=== PATIENT | male | born 1975 | race Caucasian/White ===

== ENCOUNTER → 2016-08-02 | Outpatient (REF) | payer OTHER ==
[2016-08-02 12:37] LABS: ALBUMIN 4.1 GM/DL (3.2-5.2); ALBUMIN/GLOBULIN RATIO 1.24 (1.00-1.93); ALKALINE PHOSPHATASE 94 U/L (45-117); ALT/SGPT 79 U/L (12-78); ANION GAP 8 MEQ/L (8-16); AST/SGOT 31 U/L (15-37); BILIRUBIN,TOTAL 0.4 MG/DL (0.2-1.0); BLOOD UREA NITROGEN 12 MG/DL (7-18); CALCIUM LEVEL 9.2 MG/DL (8.5-10.1); CARBON DIOXIDE LEVEL 26 MEQ/L (21-32); CHLORIDE LEVEL 104 MEQ/L (98-107); CHOLESTEROL LEVEL 217 MG/DL (<200); CREATININE FOR GFR 0.89 MG/DL (0.70-1.30); FREE T4 0.79 NG/DL (0.76-1.46); GLOMERULAR FILTRATION RATE > 60.0 (>60); GLUCOSE, FASTING 96 MG/DL (70-105); POTASSIUM SERUM 4.5 MEQ/L (3.5-5.1); SODIUM LEVEL 138 MEQ/L (136-145); TOTAL PROTEIN 7.4 GM/DL (6.4-8.2); TRIGLYCERIDES LEVEL 166 MG/DL (<150)
== END ==
LOC: M SFHCCLAY 09:10
PROVIDERS: ATTEND Nurse Practitioner
DX: E78.5 Hyperlipidemia, unspecified (principal); F41.1 Generalized anxiety disorder

== ENCOUNTER → 2017-04-17 | Outpatient (REF) | payer OTHER ==
[2017-04-18 10:56] LABS: RUBELLA IgG QUALITATIVE IMMUNE (IMMUNE)
[2017-04-19 08:07] LABS: RUBEOLA IgG ANTIBODY <25.0 AU/mL (Immune >29.9)
[2017-04-19 08:07] LABS: MUMPS VIRUS IgG ANTIBODY >300.0 AU/mL (Immune >10.9)
== END ==
LOC: M SFHCCLAY 11:31
DX: Z01.84 Encounter for antibody response examination (principal)

== ENCOUNTER → 2017-04-20 | Outpatient (CLI) | payer BC, OTHER | LOC: M CLY 11:08 | DX: J40 Bronchitis, not specified as acute or chronic (principal) | CPT/HCPCS: 71046 ==

== ENCOUNTER → 2017-04-20 | Outpatient (REF) | payer OTHER | LOC: M SFHCCLAY 10:35 | DX: J02.9 Acute pharyngitis, unspecified (principal) ==

== ENCOUNTER 2018-03-04 11:56 | Emergency (ER) | payer BC, OTHER ==
[2018-03-04 16:00] LABS: HEMATOCRIT 44.3 % (42.0-52.0); HEMOGLOBIN 15.3 g/dl (13.5-17.5); MEAN CORPUSCULAR HEMOGLOBIN 30.1 pg (27.0-33.0); MEAN CORPUSCULAR HGB CONC 34.5 g/dl (32.0-36.5); PLATELET COUNT, AUTOMATED 256 10^3/uL (150-450); RED BLOOD COUNT 5.09 10^6/uL (4.30-6.10); WHITE BLOOD COUNT 15.4 10^3/uL (4.0-10.0)
[2018-03-04 16:23] LABS: ALBUMIN 4.4 GM/DL (3.2-5.2); ALBUMIN/GLOBULIN RATIO 1.22 (1.00-1.93); ALKALINE PHOSPHATASE 112 U/L (45-117); ALT/SGPT 73 U/L (12-78); ANION GAP 5 MEQ/L (8-16); AST/SGOT 29 U/L (7-37); BILIRUBIN,DIRECT < 0.1 MG/DL (0.0-0.2); BILIRUBIN,TOTAL 0.6 MG/DL (0.2-1.0); BLOOD UREA NITROGEN 18 MG/DL (7-18); CALCIUM LEVEL 9.3 MG/DL (8.5-10.1); CARBON DIOXIDE LEVEL 28 MEQ/L (21-32); CHLORIDE LEVEL 102 MEQ/L (98-107); CREATININE FOR GFR 1.02 MG/DL (0.70-1.30); GLOMERULAR FILTRATION RATE > 60.0 (>60); GLUCOSE, FASTING 121 MG/DL (70-100); POTASSIUM SERUM 4.4 MEQ/L (3.5-5.1); SODIUM LEVEL 135 MEQ/L (136-145)
[2018-03-07 00:30] LABS: Lyme Disease IgG/IgM Antibodie <0.91 ISR (0.00-0.90); Lyme Disease IgM Ab Quantitati <0.80 index (0.00-0.79)
== END 2018-03-04 16:43 | disposition home or self-care (01) ==
LOC: M ED 11:56
DX: L50.9 Urticaria, unspecified (principal)
CPT/HCPCS: 70450

== ENCOUNTER → 2018-03-29 | Outpatient (REF) | payer OTHER ==
[~2018-03-29] MED LIST: BENA25CA4 PO; HYDR-3363 PO; PRED10TA2
[2018-03-29 16:22] LABS: BASO % 0.4 % (0.0-1.0); EOS # 0.1 10^3/uL (0.0-0.50); EOS % 0.5 % (0.0-3.0); HEMATOCRIT 43.1 % (42.0-52.0); HEMOGLOBIN 14.5 g/dl (13.5-17.5); LYMPH # 1.6 10^3/uL (1.5-4.5); LYMPH % 17.3 % (24.0-44.0); MEAN CORPUSCULAR HEMOGLOBIN 29.9 pg (27.0-33.0); MEAN CORPUSCULAR HGB CONC 33.6 g/dl (32.0-36.5); MEAN CORPUSCULAR VOLUME 88.9 fl (80.0-96.0); MONO # 0.5 10^3/uL (0.0-0.8); MONO % 5.3 % (0.0-5.0); NEUTROPHILS # 6.9 10^3/uL (1.8-7.7); NEUTROPHILS % 75.7 % (36.0-66.0); PLATELET COUNT, AUTOMATED 192 10^3/uL (150-450); RED BLOOD COUNT 4.85 10^6/uL (4.30-6.10); WHITE BLOOD COUNT 9.1 10^3/uL (4.0-10.0)
[2018-03-29 16:33] LABS: IMMUNOGLOBULIN A 133 MG/DL (70-400); IMMUNOGLOBULIN G 866 MG/DL (681-1648); IMMUNOGLOBULIN M 100 MG/DL (40-230)
== END ==
LOC: M SFHCCLAY 10:44
PROVIDERS: ATTEND Family Medicine
DX: L50.9 Urticaria, unspecified (principal)

== ENCOUNTER → 2018-04-25 | Outpatient (CLI) | payer BC, OTHER ==
[2018-04-25 13:43] LABS: BASO % 0.2 % (0.0-1.0); EOS # 0.2 10^3/uL (0.0-0.50); EOS % 2.5 % (0.0-3.0); HEMATOCRIT 43.2 % (42.0-52.0); HEMOGLOBIN 14.5 g/dl (13.5-17.5); LYMPH # 2.7 10^3/uL (1.5-4.5); LYMPH % 30.2 % (24.0-44.0); MEAN CORPUSCULAR HEMOGLOBIN 29.8 pg (27.0-33.0); MEAN CORPUSCULAR HGB CONC 33.6 g/dl (32.0-36.5); MEAN CORPUSCULAR VOLUME 88.7 fl (80.0-96.0); MONO # 0.8 10^3/uL (0.0-0.8); MONO % 9.5 % (0.0-5.0); NEUTROPHILS % 56.2 % (36.0-66.0); PLATELET COUNT, AUTOMATED 212 10^3/uL (150-450); RED BLOOD COUNT 4.87 10^6/uL (4.30-6.10); WHITE BLOOD COUNT 8.8 10^3/uL (4.0-10.0)
[2018-04-25 13:49] LABS: RHEUMATOID FACTOR QUANT < 10.0 IU/ML (<15.0); THYROXINE (T4) 5.8 UG/DL (4.5-12.0); TOTAL T3 121.2 NG/DL (60.0-181.0)
[2018-04-25 14:35] LABS: ERYTHROCYTE SEDIMENTATION RATE 7 mm/hr (0-15)
[2018-04-26 09:49] LABS: THYROGLOBULIN ANTIBODY 124.4 U/ML (<60.0); THYROID PEROXIDASE ANTIBODY > 1300.0 U/ML (<60.0)
[2018-04-30 00:07] LABS: ANTINUCLEAR ANTIBODIES DIRECT Negative (Negative); IGE RECEPTOR ABY 1 7.3 (<10)
== END ==
LOC: M SMT 09:27
PROVIDERS: ATTEND Allergy & Immunology Allergy
DX: L50.1 Idiopathic urticaria (principal)

== ENCOUNTER → 2018-06-13 | Outpatient (REF) | payer OTHER ==
[2018-06-13 17:10] LABS: BASO % 0.1 % (0.0-1.0); EOS # 0.2 10^3/uL (0.0-0.50); EOS % 1.9 % (0.0-3.0); HEMATOCRIT 44.5 % (42.0-52.0); HEMOGLOBIN 14.9 g/dl (13.5-17.5); LYMPH # 3.2 10^3/uL (1.5-4.5); LYMPH % 32.3 % (24.0-44.0); MEAN CORPUSCULAR HEMOGLOBIN 29.3 pg (27.0-33.0); MEAN CORPUSCULAR HGB CONC 33.5 g/dl (32.0-36.5); MEAN CORPUSCULAR VOLUME 87.6 fl (80.0-96.0); MONO % 9.7 % (0.0-5.0); NEUTROPHILS # 5.4 10^3/uL (1.8-7.7); NEUTROPHILS % 55.2 % (36.0-66.0); PLATELET COUNT, AUTOMATED 209 10^3/uL (150-450); RED BLOOD COUNT 5.08 10^6/uL (4.30-6.10); WHITE BLOOD COUNT 9.8 10^3/uL (4.0-10.0)
[2018-06-13 17:27] LABS: ALBUMIN 3.8 GM/DL (3.2-5.2); ALT/SGPT 73 U/L (12-78); BLOOD UREA NITROGEN 20 MG/DL (7-18); C REACTIVE PROTEIN QUANTITATIV 0.72 MG/DL (0.00-0.30); CALCIUM LEVEL 8.9 MG/DL (8.5-10.1); CARBON DIOXIDE LEVEL 31 MEQ/L (21-32); CHLORIDE LEVEL 100 MEQ/L (98-107); CREATININE FOR GFR 0.98 MG/DL (0.70-1.30); FREE T4 0.79 NG/DL (0.76-1.46); GLOMERULAR FILTRATION RATE > 60.0 (>60); GLUCOSE, FASTING 90 MG/DL (70-100); POTASSIUM SERUM 3.9 MEQ/L (3.5-5.1); RHEUMATOID FACTOR QUANT < 10.0 IU/ML (<15.0); SODIUM LEVEL 139 MEQ/L (136-145); TOTAL PROTEIN 6.7 GM/DL (6.4-8.2)
[2018-06-13 17:56] LABS: ERYTHROCYTE SEDIMENTATION RATE 3 mm/hr (0-15)
[2018-06-16 00:07] LABS: ANA (HEP2) Negative (.); IgG P18 AB Absent (.); IgG P23 AB Absent (.); IgG P28 AB Absent (.); IgG P30 AB Absent (.); IgG P39 AB Absent (.); IgG P41 AB Absent (.); IgG P45 AB Absent (.); IgG P66 AB Absent (.); IgG P93 AB Absent (.); IgM P23 AB Absent (.); IgM P39 AB Absent (.); IgM P41 AB Absent (.); LYME IgG WB INTERPRETATION Negative (.); LYME IgM WB INTERPRETATION Negative (.)
== END ==
LOC: M SFHCCLAY 11:42
PROVIDERS: ATTEND Nurse Practitioner Family
DX: K21.9 Gastro-esophageal reflux disease without esophagitis (principal); L50.9 Urticaria, unspecified; T78.40XD Allergy, unspecified, subsequent encounter

== ENCOUNTER 2018-07-16 13:04 | Day surgery (SDC) | payer BC, OTHER ==
[~2018-07-16] VITALS: Ht 182.9 cm; Wt 140.2 kg
[~2018-07-16 13:04] MED LIST changes: +LEVOTAB10 PO; +LIDOCAINE 2% INJ 100 MG/5 ML SDV (FOR ANES.) As Ordered ONE; +NS 1,000 ML IV ONE; +PANT40TA3 PO; -PRED10TA2; +PRED10TA2 PO; +PROPOFOL 200 MG/20 ML VIAL As Ordered ONE; +RANI150T PO
--- NOTE | 2018-07-16 16:11 | ROOR ---
Patient Name: Vernon Regalado Procedure Date: 07/16/2018 3:43 PM Date of : 1975 Age: 43 Room: [facility] Gender: Male Note Status: Finalized Procedure: Upper GI endoscopy Indications: Epigastric abdominal pain, Dysphagia Providers: Familia Vela MD Referring MD: Sunitha Gale NP Requesting Provider: Medicines: Monitored Anesthesia Care Complications: No immediate complications. Procedure: Pre-Anesthesia Assessment: - Prior to the procedure, a History and Physical was performed, and patient medications and allergies were reviewed. The patient is competent. The risks and benefits of the procedure and the sedation options and risks were discussed with the patient. All questions were answered and informed consent was obtained. Patient identification and proposed procedure were verified by the physician, the nurse and the anesthesiologist in the procedure room. Mental Status Examination: alert and oriented. Airway Examination: normal oropharyngeal airway and neck mobility. Respiratory Examination: clear to auscultation. CV Examination: normal. Prophylactic Antibiotics: The patient does not require prophylactic antibiotics. Prior Anticoagulants: The patient has taken no previous anticoagulant or antiplatelet agents. ASA Grade Assessment: II - A patient with mild systemic disease. After reviewing the risks and benefits, the patient was deemed in satisfactory condition to undergo the procedure. The anesthesia plan was to use monitored anesthesia care (MAC). Immediately prior to administration of medications, the patient was re-assessed for adequacy to receive sedatives. The heart rate, respiratory rate, oxygen saturations, blood pressure, adequacy of pulmonary ventilation, and response to care were monitored throughout the procedure. The physical status of the patient was re-assessed after the procedure. The Endoscope was introduced through the mouth, and advanced to the second part of duodenum. The upper GI endoscopy was accomplished without difficulty. The patient tolerated the procedure well. Findings: The examined esophagus was normal. Biopsies were obtained from the proximal and distal esophagus with cold forceps for histology of suspected eosinophilic esophagitis. Verification of patient identification for the specimen was done by the physician and nurse using the patient's name, date and medical record number. Estimated blood loss was minimal. Scattered mild inflammation characterized by erythema, granularity and linear erosions was found in the gastric antrum. Biopsies were taken with a cold forceps for Helicobacter pylori testing. The duodenal bulb and second portion of the duodenum were normal. Biopsies for histology were taken with a cold forceps for evaluation of celiac disease. Impression: - Normal esophagus. Biopsied. - Gastritis. Biopsied. - Normal duodenal bulb and second portion of the duodenum. Biopsied. Recommendation: - Patient has a contact number available for emergencies. The signs and symptoms of potential delayed complications were discussed with the patient. Return to normal activities tomorrow. Written discharge instructions were provided to the patient. - Resume previous diet. - Continue present medications. - Await pathology results. - Based on the biopsy results you will receive a phone call from GI clinic in 2-3 weeks to review the pathology results AND/OR your results will be faxed to your Primary care physician. - Return to primary care physician. Familia Vela MD Familia Vela MD 07/16/2018 4:11:33 PM Electronically signed by Familia Vela MD Number of Addenda: 0 Note Initiated On: 07/16/2018 3:43 PM Estimated Blood Loss: Estimated blood loss was minimal.
[2018-07-16 16:30] VITALS: BP 160/80
== END 2018-07-16 16:39 | disposition home or self-care (01) ==
LOC: M OPP 13:04
PROVIDERS: ATTEND Internal Medicine Gastroenterology
DX: K29.70 Gastritis, unspecified, without bleeding (principal); R10.13 Epigastric pain; R13.10 Dysphagia, unspecified

== ENCOUNTER → 2020-05-10 | Outpatient (CLI) | payer OTHER ==
[~2020-05-10] MED LIST changes: -LIDOCAINE 2% INJ 100 MG/5 ML SDV (FOR ANES.) As Ordered ONE; -NS 1,000 ML IV ONE; +PANT40TA29 PO; -PANT40TA3 PO; -PROPOFOL 200 MG/20 ML VIAL As Ordered ONE
--- NOTE | 2020-05-10 12:53 | REPVR ---
PROCEDURE INFORMATION: Exam: MR Lumbar Spine Without Contrast. Exam date and time: 05/10/2020 10:16 AM Age: 44 years old Clinical indication: Low back pain; Additional info: Spondyls w/o myelopathy or radiculopathy TECHNIQUE: Imaging protocol: Multiplanar magnetic resonance images of the lumbar spine without intravenous contrast. COMPARISON: No relevant prior studies available. FINDINGS: Vertebrae: See "L2-L3" finding. Spinal cord: The conus medullaris is normal. L1-L2: No significant disc disease. No significant spinal canal stenosis. No neural foraminal stenosis. L2-L3: The L2-L3 level demonstrates a mild diffuse posterior disc herniation. There is midline T2 bright signal at the annular insertion on T3 best seen on axial image 17 consistent with a simple annular tear with no associated disc herniation. There is no nerve root compression. L3-L4: The L3-L4 level demonstrates a mild diffuse posterior disc herniation. There is mild facet arthropathy. There is mild bilateral subarticular stenosis without foraminal compromise. L4-L5: The L4-L5 level demonstrates a mild diffuse posterior disc herniation. There is moderate bilateral facet arthropathy. There is minimal narrowing of the subarticular canals without definite nerve compression here or in the foramina. L5-S1: There is chronic disc narrowing and disc osteophytic disease at L5-S1. Osteophytic changes protrude into the left lateral foramen on axial image 3 and sagittal image 2 and 3. There is Modic type 2 signal change of the disc margins more prominent in the inferior aspect of L5. There is moderate bilateral facet arthropathy. There is mild left foraminal compromise. Soft tissues: Unremarkable. IMPRESSION: 1. The L2-L3 level demonstrates a mild diffuse posterior disc herniation. There is midline T2 bright signal at the annular insertion on T3 best seen on axial image 17 consistent with a simple annular tear with no associated disc herniation. There is no nerve root compression. 2. The L3-L4 level demonstrates a mild diffuse posterior disc herniation. There is mild facet arthropathy. There is mild bilateral subarticular stenosis without foraminal compromise. 3. The L4-L5 level demonstrates a mild diffuse posterior disc herniation. There is moderate bilateral facet arthropathy. There is minimal narrowing of the subarticular canals without definite nerve compression here or in the foramina. 4. There is chronic disc narrowing and disc osteophytic disease at L5-S1. Osteophytic changes protrude into the left lateral foramen on axial image 3 and sagittal image 2 and 3. There is Modic type 2 signal change of the disc margins more prominent in the inferior aspect of L5. There is moderate bilateral facet arthropathy. There is mild left foraminal compromise. Electronically signed by: Wilmar Jameson On 05/10/2020 12:52:43 PM
== END ==
LOC: M RAD 08:40
PROVIDERS: ATTEND Physician Assistant
DX: M47.817 Spondylosis without myelopathy or radiculopathy, lumbosacral region (principal); M51.26 Other intervertebral disc displacement, lumbar region

== ENCOUNTER → 2020-05-13 | Outpatient (CLI) | payer OTHER ==
[~2020-05-13] MED LIST changes: +ISOVUE-300 61% 50ML VIAL As Ordered ONE; +ISOVUE-M 300 61% 15ML VIAL As Ordered ONE; +PROHANCE 279.3MG/ML 5ML VIAL As Ordered ONE
--- NOTE | 2020-05-13 09:21 | REP ---
INDICATION: PAIN IN RT SHOULDER. COMPARISON: None. TECHNIQUE: The injection procedure is performed and dictated separately. Pre and post intra-articular gadolinium enhanced saline injected imaging is acquired. Imaging planes include axial, oblique coronal, oblique sagittal and ABER projection images. T1 and T2-weighted scans are included with and without fat saturation. FINDINGS: Pre-injection MR imaging demonstrates the cortical and medullary bone signal intensity are normal in the proximal humerus and scapula. There is mild hypertrophy and some fluid in the acromioclavicular joint. Minimal marrow edema is seen in the distal clavicle associated with this mild osteoarthritis. There is a small subacromial subdeltoid bursal effusion visible. Pre-injection T2 images showed 2 focal T2 hyperintense lesions at the distal insertion of the supraspinatus consistent with partial thickness distal supraspinatus tears. There is mild tendinitis tendinosis change in the distal supraspinatus tendon diffusely. Post injection imaging shows good filling and enhancement of the right glenohumeral articulation. There is no evidence of full-thickness cuff tear. Injected gadolinium enhanced saline under lies the superior labrum and I cannot exclude a nondisplaced SLAP tear. There is a small subcortical cyst in the anteroinferior glenoid. No glenoid labral tear is seen here or posteriorly. Biceps tendon appears intact. The infraspinatus and subscapularis tendons are unremarkable. No loose body. IMPRESSION: Mild AC joint osteoarthritis. Small subacromial subdeltoid bursal effusion. Partial thickness distal supraspinatus attachment site cuff tear. Possible nondisplaced SLAP tear in the superior labrum. There is a small subcortical cyst in the anteroinferior glenoid. <Electronically signed by Garrison Oates > 05/13/20 [id number]
--- NOTE | 2020-05-13 16:56 | REP ---
INDICATION: PAIN IN RT SHOULDER COMPARISON: None. TECHNIQUE: The procedure was performed under the direct supervision of Dr. Oates. The benefits and risks including but not limited to pain, infection, bleeding and anaphylaxis were explained to the patient and informed consent was obtained. The right glenohumeral joint space was localized using fluoroscopic guidance. The skin was prepped and draped in a sterile fashion. 1% lidocaine was used as a local anesthetic. Using fluoroscopic guidance a 22 gauge spinal needle was inserted and advanced into the joint. 0.5 ml of Conray 43 was injected to verify placement. 11 ml of a solution containing 20 ml of sterile saline and 0.15 ml of ProHance was injected into the joint. The needle was removed and the patient was taken to MRI for postprocedural imaging. The patient tolerated the procedure well and there were no immediate complications. Less than 6 seconds of fluoro time was utilized for this procedure. FINDINGS: None IMPRESSION: Fluoro guidance for right shoulder MRI arthrogram injection <Electronically signed by Mekhi Mancini > 05/13/20 160 <Electronically signed by Garrison Oates > 05/13/20 [id number]
== END ==
LOC: M RADPRO 06:31
PROVIDERS: ATTEND Physician Assistant
DX: R93.7 Abnormal findings on diagnostic imaging of other parts of musculoskeletal system (principal); M25.511 Pain in right shoulder
CPT/HCPCS: 23350; 73223; 77002; A9576; Q9967

== ENCOUNTER → 2020-05-21 | Outpatient (CLI) | payer OTHER ==
[~2020-05-21] MED LIST changes: -ISOVUE-M 300 61% 15ML VIAL As Ordered ONE
--- NOTE | 2020-05-21 08:44 | REP ---
INDICATION: PAIN IN RIGHT HIP. COMPARISON: None. TECHNIQUE: Precontrast imaging includes coronal T1 and T2-weighted scans of both hips. Precontrast high-resolution smaller field of view axial, coronal and sagittal T2 fat sat images are acquired of the hip. The injection procedure is performed and dictated separately. Postcontrast T1 fat sat images are acquired in all 3 planes. FINDINGS: Pre-injection imaging demonstrates that cortical and medullary bone signal intensity are normal in the proximal femurs and in the visualized bony pelvic ring. There is no evidence of avascular necrosis. No significant hip joint effusion is seen. Prostate, seminal vesicles, and urinary bladder are unremarkable. No abdominal wall defect is seen. No juxta-articular cyst or mass is observed. Post injection imaging shows good filling and enhancement of the right hip articulation. There is no evidence of loose body. No articular labral cartilage tear is appreciated. Head neck junction morphology is normal. Ligamentum teres is intact. There is a 4 mm focal partial-thickness T2 hyperintense focus in the articular cartilage of the right femoral head consistent with focal chondromalacia. No other articular cartilaginous lesion is seen. 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 Otherwise negative MR arthrography right hip. No evidence of labral cartilage tear or loose body. <Electronically signed by Garrison Oates > 05/21/20 [id number]
--- NOTE | 2020-05-21 17:33 | REP ---
INDICATION: PAIN IN RIGHT HIP. COMPARISON: None. TECHNIQUE: The procedure was performed under the direction supervision of Dr. Oates. The benefits and risks including but not limited to pain, infection, bleeding and anaphylaxis were explained to the patient and informed consent was obtained. The right femoral neck was localized using fluoroscopic guidance. Skin was prepped and draped in a sterile fashion. 1% lidocaine was used as a local anesthetic. Using fluoroscopic guidance a 22 gauge spinal needle was inserted and advanced to the femoral neck. 0.5 ml of Isovue-300 was injected to verify placement. 11 ml of a solution containing 20 ml of sterile saline and 0.15 ml of ProHance was injected into the joint. The needle was removed and the patient was taken to MRI for postprocedural imaging. The patient tolerated the procedure well and there were no immediate complications. Less than 6 seconds of fluoro time was utilized for this procedure. FINDINGS: None IMPRESSION: Fluoroscopic guidance for right hip MRI arthrogram injection. <Electronically signed by Mekhi Mancini > 05/21/20 0843 <Electronically signed by Garrison Oates > 05/21/20 [id number]
== END ==
LOC: M RADPRO 06:28
PROVIDERS: ATTEND Physician Assistant
DX: M25.551 Pain in right hip (principal); M94.251 Chondromalacia, right hip
CPT/HCPCS: 27093; 73723; 77002; A9576; Q9967

== ENCOUNTER → 2020-08-25 | Outpatient (REF) | payer OTHER ==
[~2020-08-25] MED LIST changes: -ISOVUE-300 61% 50ML VIAL As Ordered ONE; -PROHANCE 279.3MG/ML 5ML VIAL As Ordered ONE
== END ==
LOC: M LAB REF 09:07
PROVIDERS: ATTEND Surgery
DX: L72.3 Sebaceous cyst (principal)

== ENCOUNTER → 2020-09-22 | Outpatient (REF) | payer OTHER | LOC: M LAB REF 14:46 | PROVIDERS: ATTEND Surgery | DX: L72.3 Sebaceous cyst (principal) ==

== ENCOUNTER → 2021-01-20 | Outpatient (CLI) | payer OTHER ==
[2021-01-20 16:35] LABS: COLLAGEN EPINEPHRINE 226 SECONDS (74-162)
[2021-01-20 16:59] LABS: PLATELET COUNT, AUTOMATED 256 10^3/uL (150-450)
[2021-01-20 17:05] LABS: COLLAGEN ADP > 610 SECONDS (56-103)
[2021-01-20 17:29] LABS: INR 1.29; PROTHROMBIN TIME 16.6 SECONDS (12.7-14.5)
[2021-01-20 17:30] LABS: PARTIAL THROMBOPLASTIN TIME 38.1 SECONDS (25.9-37.0)
== END ==
LOC: M WUC 15:12
PROVIDERS: ATTEND Physical Medicine & Rehabilitation
DX: M54.17 Radiculopathy, lumbosacral region (principal)

== ENCOUNTER → 2021-01-24 | Outpatient (CLI) | payer OTHER ==
[2021-01-24 07:03] LABS: COLLAGEN EPINEPHRINE 162 SECONDS (74-162)
== END ==
LOC: M LAB 06:26
PROVIDERS: ATTEND Physical Medicine & Rehabilitation
DX: Z01.812 Encounter for preprocedural laboratory examination (principal)

== ENCOUNTER → 2021-01-28 | Outpatient (CLI) | payer OTHER ==
[~2021-01-28] MED LIST changes: +ISOVUE-300 61% 50ML VIAL As Ordered ONE; +LIDOCAINE 1% MDV 20ML VIAL As Ordered ONE; +methylPREDNISolone SUSP 40MG/ML 1ML VIAL (DEPO MEDROL) As Ordered ONE
--- NOTE | 2021-01-28 16:21 | REP ---
INDICATION: OA RT HIP. COMPARISON: None TECHNIQUE: The procedure was performed by RODRICK Hyde, under the direct supervision of Dr. Grover. The benefits and risks of the procedure were explained to the patient, and an informed consent was obtained. Directly prior to the start of the procedure, a formal time-out was completed in the procedure room. The right hip joint space was localized using fluoroscopic guidance. The skin was prepped and draped in a sterile fashion. Approximately 5 mL of 1% Lidocaine 10 mg/ml was used as a local anesthetic. Using fluoroscopic guidance, a #22 gauge spinal needle was inserted and advanced into the right hip joint space. Approximately 2 mL of Isovue 300 was injected to verify placement. Seven mL of a solution containing 5 mL 1% lidocaine 10 mg/ml and 2 cc Depo-Medrol 40 milligrams/milliliter was injected into the joint space. The needle was removed and hemostasis was achieved. FINDINGS: The patient tolerated the procedure well and there were no immediate complications. IMPRESSION: 1. Technically successful right hip arthrogram. 0.1 minutes of fluoroscopy time was utilized for this procedure. Some fluoroscopic images are performed with last image hold technology. These images require no additional radiation. <Electronically signed by Dianna Lainez > 01/28/21 0998 <Electronically signed by Anthony Grover > 01/28/21 [id number]
== END ==
LOC: M RADPRO 13:11
PROVIDERS: ATTEND Physician Assistant
DX: M16.11 Unilateral primary osteoarthritis, right hip (principal)
CPT/HCPCS: 20610; 77002; J1030; Q9967

== ENCOUNTER → 2021-07-01 | Outpatient (CLI) | payer OTHER ==
[~2021-07-01] MED LIST changes: +PROHANCE 279.3MG/ML 5ML VIAL As Ordered ONE; -methylPREDNISolone SUSP 40MG/ML 1ML VIAL (DEPO MEDROL) As Ordered ONE
== END ==
LOC: M RADPRO 06:40
PROVIDERS: ATTEND Physician Assistant
DX: M24.151 Other articular cartilage disorders, right hip (principal); M16.11 Unilateral primary osteoarthritis, right hip
CPT/HCPCS: 27093; 73723; 77002; A9576; Q9967

== ENCOUNTER → 2021-07-22 | Outpatient (CLI) | payer OTHER ==
[~2021-07-22] MED LIST changes: -PROHANCE 279.3MG/ML 5ML VIAL As Ordered ONE; +methylPREDNISolone SUSP 40MG/ML 1ML VIAL (DEPO MEDROL) As Ordered ONE
== END ==
LOC: M RADPRO 14:59
PROVIDERS: ATTEND Physician Assistant
DX: M16.11 Unilateral primary osteoarthritis, right hip (principal)
CPT/HCPCS: 20610; 77002; J1030; Q9967

== ENCOUNTER → 2021-09-19 | Outpatient (REF) | payer OTHER ==
[~2021-09-19] MED LIST changes: -ISOVUE-300 61% 50ML VIAL As Ordered ONE; -LIDOCAINE 1% MDV 20ML VIAL As Ordered ONE; -methylPREDNISolone SUSP 40MG/ML 1ML VIAL (DEPO MEDROL) As Ordered ONE
== END ==
LOC: M LAB REF 16:54
PROVIDERS: ATTEND Surgery
DX: L72.3 Sebaceous cyst (principal)

== ENCOUNTER → 2021-10-15 | Outpatient (CLI) | payer OTHER | LOC: M RAD 09:31 | PROVIDERS: ATTEND Physician Assistant | DX: M51.26 Other intervertebral disc displacement, lumbar region (principal) ==

== ENCOUNTER → 2021-11-07 | Outpatient (CLI) | payer OTHER | LOC: M PAIN 13:30 | PROVIDERS: ATTEND Nurse Practitioner Family | DX: M51.16 Intervertebral disc disorders with radiculopathy, lumbar region (principal); G43.909 Migraine, unspecified, not intractable, without status migrainosus; K21.9 Gastro-esophageal reflux disease without esophagitis; Z86.14 Personal history of Methicillin resistant Staphylococcus aureus infection; Z87.891 Personal history of nicotine dependence; Z79.899 Other long term (current) drug therapy ==

== ENCOUNTER → 2021-12-29 | Outpatient (CLI) | payer OTHER | LOC: M LABSMTC 09:48 | PROVIDERS: ATTEND Anesthesiology | DX: Z11.52 Encounter for screening for COVID-19 (principal) ==

== ENCOUNTER → 2022-01-03 | Outpatient (CLI) | payer OTHER ==
[~2022-01-03] MED LIST changes: +ISOVUE-M 300 61% 15ML VIAL As Ordered ONE; +LIDOCAINE 1% SDV 30ML VIAL As Ordered ONE; +NORCO, ANEXSIA 5/325MG TABLET (HYDROcodone/ACETAMINOPHEN) As Ordered ONE; +diazePAM 5MG TABLET As Ordered ONE; +methylPREDNISolone SUSP 40MG/ML 1ML VIAL (DEPO MEDROL) As Ordered ONE
== END ==
LOC: M PAIN 10:00
PROVIDERS: ATTEND Anesthesiology
DX: M51.17 Intervertebral disc disorders with radiculopathy, lumbosacral region (principal); G43.909 Migraine, unspecified, not intractable, without status migrainosus; K21.9 Gastro-esophageal reflux disease without esophagitis; Z79.899 Other long term (current) drug therapy; Z87.891 Personal history of nicotine dependence
CPT/HCPCS: 62323; J1030; Q9967

== ENCOUNTER → 2022-02-14 | Outpatient (CLI) | payer OTHER ==
[~2022-02-14] MED LIST changes: -ISOVUE-M 300 61% 15ML VIAL As Ordered ONE; -LIDOCAINE 1% SDV 30ML VIAL As Ordered ONE; -NORCO, ANEXSIA 5/325MG TABLET (HYDROcodone/ACETAMINOPHEN) As Ordered ONE; -diazePAM 5MG TABLET As Ordered ONE; -methylPREDNISolone SUSP 40MG/ML 1ML VIAL (DEPO MEDROL) As Ordered ONE
== END ==
LOC: M PAIN 11:30
PROVIDERS: ATTEND Nurse Practitioner Family
DX: M51.16 Intervertebral disc disorders with radiculopathy, lumbar region (principal); G89.29 Other chronic pain; G43.909 Migraine, unspecified, not intractable, without status migrainosus; K21.9 Gastro-esophageal reflux disease without esophagitis; Z87.891 Personal history of nicotine dependence; Z79.899 Other long term (current) drug therapy

== ENCOUNTER → 2022-03-16 | Outpatient (CLI) | payer OTHER | LOC: M LABSMTC 09:28 | PROVIDERS: ATTEND Anesthesiology | DX: Z01.812 Encounter for preprocedural laboratory examination (principal) ==

== ENCOUNTER → 2022-03-17 | Outpatient (CLI) | payer OTHER ==
[~2022-03-17] MED LIST changes: +ISOVUE-300 61% 50ML VIAL As Ordered ONE; +LIDOCAINE 1% MDV 20ML VIAL As Ordered ONE; +methylPREDNISolone SUSP 40MG/ML 1ML VIAL (DEPO MEDROL) As Ordered ONE
== END ==
LOC: M RAD 15:02
PROVIDERS: ATTEND Physician Assistant
DX: M25.551 Pain in right hip (principal)

== ENCOUNTER → 2022-05-07 | Outpatient (CLI) | payer OTHER ==
[~2022-05-07] MED LIST changes: -ISOVUE-300 61% 50ML VIAL As Ordered ONE; -LIDOCAINE 1% MDV 20ML VIAL As Ordered ONE; -methylPREDNISolone SUSP 40MG/ML 1ML VIAL (DEPO MEDROL) As Ordered ONE
== END ==
LOC: M LABSMTC 11:05
PROVIDERS: ATTEND Anesthesiology
DX: Z01.812 Encounter for preprocedural laboratory examination (principal); Z11.52 Encounter for screening for COVID-19

== ENCOUNTER → 2022-05-11 | Outpatient (CLI) | payer OTHER ==
[~2022-05-11] MED LIST changes: +BUPIVACAINE HCL 0.25% 30ML VIAL As Ordered ONE; +ISOVUE-M 300 61% 15ML VIAL As Ordered ONE; +LIDOCAINE 1% SDV 30ML VIAL As Ordered ONE; +NORCO, ANEXSIA 5/325MG TABLET (HYDROcodone/ACETAMINOPHEN) As Ordered ONE; +diazePAM 5MG TABLET As Ordered ONE
== END ==
LOC: M PAIN 12:30
PROVIDERS: ATTEND Anesthesiology
DX: M51.16 Intervertebral disc disorders with radiculopathy, lumbar region (principal); G43.909 Migraine, unspecified, not intractable, without status migrainosus; K21.9 Gastro-esophageal reflux disease without esophagitis; M25.559 Pain in unspecified hip; Z87.891 Personal history of nicotine dependence; Z79.899 Other long term (current) drug therapy
CPT/HCPCS: 64483; J1100; S0020

== ENCOUNTER → 2022-06-13 | Outpatient (CLI) | payer OTHER ==
[~2022-06-13] MED LIST changes: -BUPIVACAINE HCL 0.25% 30ML VIAL As Ordered ONE; -ISOVUE-M 300 61% 15ML VIAL As Ordered ONE; -LIDOCAINE 1% SDV 30ML VIAL As Ordered ONE; -NORCO, ANEXSIA 5/325MG TABLET (HYDROcodone/ACETAMINOPHEN) As Ordered ONE; -diazePAM 5MG TABLET As Ordered ONE
== END ==
LOC: M PAIN 09:30
PROVIDERS: ATTEND Nurse Practitioner Family
DX: G89.29 Other chronic pain (principal); M47.816 Spondylosis without myelopathy or radiculopathy, lumbar region; M47.817 Spondylosis without myelopathy or radiculopathy, lumbosacral region; G43.909 Migraine, unspecified, not intractable, without status migrainosus; K21.9 Gastro-esophageal reflux disease without esophagitis; M51.26 Other intervertebral disc displacement, lumbar region; Z87.891 Personal history of nicotine dependence; Z79.899 Other long term (current) drug therapy

== ENCOUNTER → 2022-08-01 | Outpatient (CLI) | payer OTHER ==
[~2022-08-01] MED LIST changes: +BUPIVACAINE HCL 0.25% 30ML VIAL As Ordered ONE; +ISOVUE-M 300 61% 15ML VIAL As Ordered ONE; +LIDOCAINE 1% SDV 30ML VIAL As Ordered ONE
== END ==
LOC: M PAIN 10:15
PROVIDERS: ATTEND Anesthesiology
DX: Z53.21 Procedure and treatment not carried out due to patient leaving prior to being seen by health care provider (principal)

== ENCOUNTER → 2022-08-03 | Outpatient (CLI) | payer OTHER | LOC: M PAIN 09:30 | PROVIDERS: ATTEND Anesthesiology | DX: M47.816 Spondylosis without myelopathy or radiculopathy, lumbar region (principal); K21.9 Gastro-esophageal reflux disease without esophagitis; Z87.891 Personal history of nicotine dependence; Z79.899 Other long term (current) drug therapy | CPT/HCPCS: 64493; 64494; 64495; Q9967; S0020 ==

== ENCOUNTER → 2022-08-15 | Outpatient (CLI) | payer OTHER | LOC: M PAIN 08:00 | PROVIDERS: ATTEND Anesthesiology | DX: M47.817 Spondylosis without myelopathy or radiculopathy, lumbosacral region (principal); G43.909 Migraine, unspecified, not intractable, without status migrainosus; K21.9 Gastro-esophageal reflux disease without esophagitis; M51.26 Other intervertebral disc displacement, lumbar region; Z79.899 Other long term (current) drug therapy; Z87.891 Personal history of nicotine dependence | CPT/HCPCS: 64493; 64494; Q9967; S0020 ==

== ENCOUNTER 2022-09-22 17:28 | Emergency (ER) | payer OTHER ==
[~2022-09-22] VITALS: Ht 182.9 cm; Wt 126.7 kg
[~2022-09-22 17:28] MED LIST changes: -BUPIVACAINE HCL 0.25% 30ML VIAL As Ordered ONE; -ISOVUE-M 300 61% 15ML VIAL As Ordered ONE; -LIDOCAINE 1% SDV 30ML VIAL As Ordered ONE
[2022-09-22] MEDS ORDERED: KETOROLAC 60MG 2ML VIAL IM ONE (20:25)
[2022-09-22] MEDS ORDERED: NORCO 5/325MG TABLET (HOME DOSE PACK) PO ONE (20:25)
[2022-09-22] MEDS ORDERED: predniSONE 20 MG TAB PO ONE (20:25)
[2022-09-22] MEDS ORDERED: LIDOCAINE 5% (LIDODERM) PATCH TD ONE (20:25)
[2022-09-22] MEDS ORDERED: PRED20TA PO (20:29)
[2022-09-22] MEDS ORDERED: METH-1165 PO (20:29)
[2022-09-22] MEDS ORDERED: LIDO5DIS41 TD (20:33)
[2022-09-22 20:44] VITALS: BP 145/81; TEMP 98; O2SAT 97
== END 2022-09-22 20:44 | disposition home or self-care (01) ==
LOC: M ED 17:28
DX: M25.511 Pain in right shoulder (principal); K21.9 Gastro-esophageal reflux disease without esophagitis; Z79.899 Other long term (current) drug therapy; Z79.51 Long term (current) use of inhaled steroids
CPT/HCPCS: 96372; 99283; J1885; J7512

== ENCOUNTER → 2022-09-27 | Outpatient (CLI) | payer OTHER ==
[~2022-09-27] MED LIST changes: +LIDO5DIS41 TD; +METH-1165 PO; +PRED20TA PO
== END ==
LOC: M PAIN 08:45 → M TMPAIN 08:45
PROVIDERS: ATTEND Anesthesiology
DX: M47.816 Spondylosis without myelopathy or radiculopathy, lumbar region (principal); G89.29 Other chronic pain; G43.909 Migraine, unspecified, not intractable, without status migrainosus; K21.9 Gastro-esophageal reflux disease without esophagitis; M51.26 Other intervertebral disc displacement, lumbar region; Z87.891 Personal history of nicotine dependence; Z79.899 Other long term (current) drug therapy

== ENCOUNTER → 2022-10-31 | Outpatient (CLI) | payer OTHER | LOC: M PAIN 09:00 | PROVIDERS: ATTEND Nurse Practitioner Family | DX: M79.10 Myalgia, unspecified site (principal); G89.29 Other chronic pain; M25.511 Pain in right shoulder; G43.909 Migraine, unspecified, not intractable, without status migrainosus; K21.9 Gastro-esophageal reflux disease without esophagitis; M51.26 Other intervertebral disc displacement, lumbar region; Z87.891 Personal history of nicotine dependence; Z79.899 Other long term (current) drug therapy ==

== ENCOUNTER → 2022-11-23 | Outpatient (CLI) | payer OTHER, BC ==
[~2022-11-23] MED LIST changes: +LIDOCAINE 1% SDV 30ML VIAL As Ordered ONE; +dexAMETHasone 10MG/1ML VIAL PRES.FREE As Ordered ONE; +diazePAM 5MG TABLET As Ordered ONE; +oxyCODONE 5MG TAB As Ordered ONE
== END ==
LOC: M PAIN 14:00
PROVIDERS: ATTEND Anesthesiology
DX: M51.16 Intervertebral disc disorders with radiculopathy, lumbar region (principal); G43.909 Migraine, unspecified, not intractable, without status migrainosus; K21.9 Gastro-esophageal reflux disease without esophagitis; Z79.899 Other long term (current) drug therapy; Z87.891 Personal history of nicotine dependence
CPT/HCPCS: 64635; 64636; J0665; J1100

== ENCOUNTER → 2022-12-13 | Outpatient (CLI) | payer OTHER, BC ==
[~2022-12-13] MED LIST changes: +IBUP-1022 PO; -LIDOCAINE 1% SDV 30ML VIAL As Ordered ONE; +MEDR4TAB PO; +TIZA10TA PO; +TRAM50TA2 PO; -dexAMETHasone 10MG/1ML VIAL PRES.FREE As Ordered ONE; -diazePAM 5MG TABLET As Ordered ONE; -oxyCODONE 5MG TAB As Ordered ONE
== END ==
LOC: M PAIN 09:30
PROVIDERS: ATTEND Anesthesiology
DX: M47.816 Spondylosis without myelopathy or radiculopathy, lumbar region (principal); G89.29 Other chronic pain; G43.909 Migraine, unspecified, not intractable, without status migrainosus; K21.9 Gastro-esophageal reflux disease without esophagitis; Z86.14 Personal history of Methicillin resistant Staphylococcus aureus infection; Z87.891 Personal history of nicotine dependence; Z79.899 Other long term (current) drug therapy

== ENCOUNTER 2022-12-15 11:05 | Emergency (ER) | payer OTHER ==
[~2022-12-15] VITALS: Ht 182.9 cm; Wt 127.3 kg
[~2022-12-15 11:05] MED LIST changes: -IBUP-1022 PO; -MEDR4TAB PO; -TIZA10TA PO; -TRAM50TA2 PO
[2022-12-15] MEDS ORDERED: IBUP-1022 PO (12:13)
[2022-12-15] MEDS ORDERED: TIZA10TA PO (12:13)
[2022-12-15] MEDS ORDERED: ACETAMINOPHEN TAB 650MG DOSE (2X325MG) PO ONE (12:55)
[2022-12-15] MEDS ORDERED: KETOROLAC 30 MG/ML 1ML VIAL IM ONE (12:55)
[2022-12-15] MEDS ORDERED: LIDOCAINE 5% (LIDODERM) PATCH TD ONE (12:55)
[2022-12-15] MEDS ORDERED: TRAM50TA2 PO (13:30)
[2022-12-15] MEDS ORDERED: MEDR4TAB PO (13:30)
[2022-12-15] MEDS ORDERED: LIDO5DIS41 TD (13:30)
[2022-12-15 13:59] VITALS: BP 154/67; TEMP 97.1; O2SAT 100
== END 2022-12-15 14:01 | disposition home or self-care (01) ==
LOC: M ED 11:05
DX: S39.012A Strain of muscle, fascia and tendon of lower back, initial encounter (principal); X50.0XXA Overexertion from strenuous movement or load, initial encounter; Y99.0 Civilian activity done for income or pay; M54.40 Lumbago with sciatica, unspecified side
CPT/HCPCS: 96372; 99283; J1885

== ENCOUNTER 2023-05-01 17:32 | Emergency (ER) | payer OTHER ==
[~2023-05-01] VITALS: Ht 182.9 cm; Wt 133.0 kg
[~2023-05-01 17:32] MED LIST changes: +IBUP-1022 PO; +MEDR4TAB PO; +TIZA10TA PO; +TRAM50TA2 PO
[2023-05-01] MEDS ORDERED: AMIT25TA19 (17:44)
[2023-05-01] MEDS ORDERED: MELO7.5T35 (17:44)
[2023-05-01] MEDS ORDERED: LIDOCAINE 5% (LIDODERM) PATCH TD ONE (18:50)
[2023-05-01] MEDS ORDERED: KETOROLAC 60MG 2ML VIAL IM ONE (18:50)
[2023-05-01] MEDS ORDERED: diazePAM 5MG TABLET PO ONE (18:50)
[2023-05-01] MEDS ORDERED: KETO10TAB PO (20:03)
[2023-05-01] MEDS ORDERED: MEDR4TAB PO (20:03)
[2023-05-01] MEDS ORDERED: KETOROLAC TROMETHAMINE 10 MG TAB PO ONE (20:05)
[2023-05-01 20:42] VITALS: BP 142/67; TEMP 97.5; O2SAT 95
== END 2023-05-01 20:46 | disposition home or self-care (01) ==
LOC: M ED 17:32
DX: M54.50 Low back pain, unspecified (principal); Z79.2 Long term (current) use of antibiotics; Z79.52 Long term (current) use of systemic steroids; Z79.899 Other long term (current) drug therapy
CPT/HCPCS: 96374; 96375; 99284; J1100; J1885

== ENCOUNTER → 2023-09-26 | Outpatient (CLI) | payer MEDICARE, OTHER ==
[~2023-09-26] MED LIST changes: +AMIT25TA19; +KETO10TAB PO; +MELO7.5T35
== END ==
LOC: M RAD 12:31
PROVIDERS: ATTEND Nurse Practitioner Family
DX: M79.89 Other specified soft tissue disorders (principal)

== ENCOUNTER → 2023-10-18 | Outpatient (CLI) | payer MEDICARE, OTHER ==
[~2023-10-18] MED LIST changes: +ISOVUE-370 76% 100ML VIAL As Ordered ONE
== END ==
LOC: M RAD 09:07
PROVIDERS: ATTEND Nurse Practitioner Family
DX: R22.2 Localized swelling, mass and lump, trunk (principal)
CPT/HCPCS: 71260; Q9967

== ENCOUNTER 2023-12-05 12:08 | Emergency (ER) | payer MEDICARE, OTHER ==
[~2023-12-05] VITALS: Ht 182.9 cm; Wt 125.5 kg
[~2023-12-05 12:08] MED LIST changes: -ISOVUE-370 76% 100ML VIAL As Ordered ONE
[2023-12-05] MEDS: ACETAMINOPHEN TAB 650MG DOSE (2X325MG) PO ONE (14:46)
[2023-12-05] MEDS: KETOROLAC 30 MG/ML 1ML VIAL IM ONE (14:46)
[2023-12-05] MEDS ORDERED: KETO10TAB PO (16:07)
[2023-12-05] MEDS ORDERED: ASPE4PAD TOP (16:07)
[2023-12-05] MEDS ORDERED: MEDR4PAK PO (16:07)
[2023-12-05 16:19] VITALS: BP 150/72; TEMP 96.8; O2SAT 98
== END 2023-12-05 16:22 | disposition home or self-care (01) ==
LOC: M ED 12:08
DX: M51.36 Other intervertebral disc degeneration, lumbar region (principal); M54.40 Lumbago with sciatica, unspecified side; Z79.899 Other long term (current) drug therapy
CPT/HCPCS: 96372; 99283; J1885

== ENCOUNTER 2024-04-11 09:53 | Day surgery (SDC) | payer MEDICARE ==
[~2024-04-11] VITALS: Ht 182.9 cm; Wt 127.0 kg
[~2024-04-11 09:53] MED LIST changes: +ASPE4PAD TOP; +MEDR4PAK PO
[2024-04-11] MEDS ORDERED: LR 1,000 ML IV SCH ×2 (10:20→12:50)
[2024-04-11] MEDS ORDERED: LIDOCAINE 2% 100MG/5ML SDV (FOR ANES.) As Ordered ONE (10:38)
[2024-04-11] MEDS ORDERED: MIDAZOLAM INJ 2MG/2ML VIAL As Ordered ONE (10:38)
[2024-04-11] MEDS ORDERED: propofoL 200 MG/20 ML VIAL As Ordered ONE (10:38)
[2024-04-11] MEDS ORDERED: fentaNYL 100 MCG/2 ML INJECTION As Ordered ONE (10:38)
[2024-04-11] MEDS ORDERED: ACETAMINOPHEN 1000MG/100ML IV BAG As Ordered ONE (10:40)
[2024-04-11] MEDS: ceFAZolin SOD 2 GM in IV 1 EA IV ONE (11:00)
[2024-04-11] MEDS ORDERED: ROCURONIUM BROMIDE 50MG/5ML VIAL As Ordered ONE (11:31)
[2024-04-11] MEDS ORDERED: SUGAMMADEX SODIUM 500 MG/5 ML VIAL (BRIDION) As Ordered ONE (11:32)
[2024-04-11] MEDS ORDERED: GLYCOPYRROLATE INJ 0.2 MG/ML 2 ML VIAL As Ordered ONE (11:58)
[2024-04-11] MEDS ORDERED: ONDANSETRON 4MG 2ML VIAL IV PRN (12:50)
[2024-04-11] MEDS ORDERED: fentaNYL 100 MCG/2 ML INJECTION IV PRN (12:50)
[2024-04-11] MEDS ORDERED: HYDROMORPHONE HCL 0.5 MG/ 0.5 ML SYRINGE IV PRN (12:50)
[2024-04-11] MEDS: oxyCODONE 5MG TAB PO PRN (13:16)
[2024-04-11] MEDS: KETOROLAC 30 MG/ML 1ML VIAL IV ONE (13:26)
[2024-04-11 13:30] VITALS: BP 129/60; TEMP 97.8; O2SAT 97
== END 2024-04-11 14:00 | disposition home or self-care (01) ==
LOC: M SDC 09:53
PROVIDERS: ATTEND Surgery
DX: D17.1 Benign lipomatous neoplasm of skin and subcutaneous tissue of trunk (principal); D17.0 Benign lipomatous neoplasm of skin and subcutaneous tissue of head, face and neck; Z86.14 Personal history of Methicillin resistant Staphylococcus aureus infection
CPT/HCPCS: 12032; 12042; 21552; 21556; 88304; J0131; J0665; J0690; J1596; J1885; J2250; J3010

== ENCOUNTER → 2024-04-28 | Outpatient (REF) | payer MEDICARE | LOC: M LAB REF 12:55 | PROVIDERS: ATTEND Surgery | DX: L72.3 Sebaceous cyst (principal) ==

== ENCOUNTER → 2024-11-07 | Outpatient (REF) | payer OTHER, MEDICARE ==
[~2024-11-07] MED LIST changes: +LIDO1ADH93 TD; -LIDO5DIS41 TD
== END ==
LOC: M SFHCDERM 16:30
PROVIDERS: ATTEND Nurse Practitioner Family
DX: D22.61 Melanocytic nevi of right upper limb, including shoulder (principal)